=== PATIENT | female | born 1965 | race Caucasian/White ===

== ENCOUNTER 2025-02-11 15:35 | Outpatient (AMB) | payer BC, SELFPAY ==
--- OUTSIDE RECORDS SUMMARY | 2025-02-11 17:34 | XMS_ITS | Encounter Summary ---
Author Organization [employer] Address [address] [facility] 7t [place] [address] Care Team Providers Care Chair And Couch Maker Name Role Phone Dasia Rosen Unassigned Primary Care Provider U Reagan Moreno NP Primary Care Provider [phone] Apoorva Montero DO Primary Care Provider [phone] Ko Byrne Unavailable Encounter Details Date Type Department Care Team (Latest Contact Info) Description 09/18/2020 Abstract [facility] Dental, Provider, DDS Social History Tobacco Use Types Packs/Day Years Used Date Smoking Tobacco: Never Assessed Comments Unknown Sex and Gender Information Value Date Recorded Sex Assigned at Female 09/30/2022 10:27 AM EDT Legal Sex Female 5:35 PM EDT Gender Identity Female 09/30/2022 10:27 AM EDT Sexual Orientation Choose not to disclose 2022 10:27 AM EDT documented as of this encounter Plan of Treatment Upcoming Encounters Date Type Department Care Team (Late st Contact Info) Description 04/19/2025 11:00 AM EDT Office Visit [place] [facility] D[facility] [address] [place] [address] Zakia Avila documented as of this encounter Visit Diagnoses Not on filedocumented in this encounter Care Teams Chair And Couch Maker Relationship Specialty Start Date End Date Dasia Rosen Unassigned PCP - General Family Medicine 10/18/22 05/28/24 Reagan aHnna NP [address] [place] [address] PCP - General Internal Medicine 05/29/24 07/05/24 Apoorva Montero DO [address] [place] [address] PCP - General Family Medicine 07/06/24 Ko Byrne 01/17/25 documented as of this encounter
--- OUTSIDE RECORDS SUMMARY | 2025-02-11 17:34 | XMS_ITS | Encounter Summary ---
Author Organization [employer] Address [address] [facility] 7t [place] [address] Care Team Providers Care Finance Attorney Name Role Phone Dasia Rosen Unassigned Primary Care Provider U Reagan Moreno NP Primary Care Provider [phone] Apoorva Montero DO Primary Care Provider [phone] Ko Byrne Unavailable Encounter Details Date Type Department Care Team (Latest Contact Info) Description 03/09/2019 [facility] Dental, Provider, DDS Social [...] Description 04/19/2025 11:00 AM EDT Office Visit [place] [facility] D[facility]AL [address] [place] [address] Zakia Avila documented as of this encounter Visit Diagnoses Not on filedocumented in this encounter Care Teams Finance Attorney Relationship Specialty Start Date End Date Dasia Rosen Unassigned PCP - General Family Medicine 10/18/22 05/28/24 Reagan Hanna NP [address] [place] [address] PCP - General Internal Medicine 05/29/24 07/05/24 Apoorva Montero DO [address] [place] [address] PCP - General Family Medicine 07/06/24 Ko Byrne 01/17/25 documented as of this encounter
--- OUTSIDE RECORDS SUMMARY | 2025-02-11 17:34 | XMS_ITS | Encounter Summary ---
Author Organization [employer] Address [address] [facility] 7t [place] [address] Care Team Providers Care E D Tech Name Role Phone Dasia Rosen Unassigned Primary Care Provider U Reagan Moreno NP Primary Care Provider [phone] Apoorva Montero DO Primary Care Provider [phone] Ko Byrne Unavailable Encounter Details Date Type Department Care Team (Latest Contact Info) Description 05/26/2021 Abstract [facility] Dental, Provider, DDS Social [...] Description 04/19/2025 11:00 AM EDT Office Visit [place] [facility] D[facility] [address] [place] [address] Zakia Avila documented as of this encounter Visit Diagnoses Not on filedocumented in this encounter Care Teams E D Tech Relationship Specialty Start Date End Date Dasia Rosen Unassigned PCP - General Family Medicine 10/18/22 05/28/24 Reagan Hanna NP [address] [place] [address] PCP - General Internal Medicine 05/29/24 07/05/24 Apoorva Montero DO [address] [place] [address] PCP - General Family Medicine 07/06/24 Ko Byrne 01/17/25 documented as of this encounter
--- OUTSIDE RECORDS SUMMARY | 2025-02-11 17:34 | XMS_ITS | Encounter Summary ---
Author Organization [employer] Address 75 [facility] 7t [place] [address] Care Team Providers Care Clinical Nurse Educator Name Role Phone Dasia Rosen Unassigned Primary Care Provider U Reagan Moreno NP Primary Care Provider [phone] Apoorva Montero DO Primary Care Provider [phone] Ko Byrne Unavailable Encounter Details Date Type Department Care Team (Latest Contact Info) Description 12/29/2021 Abstract [facility] Dental, Provider, DDS Social [...] Description 04/19/2025 11:00 AM EDT Office Visit [place] [facility] D[facility]AL [address] [place] [address] Zakia Avila documented as of this encounter Visit Diagnoses Not on filedocumented in this encounter Care Teams Clinical Nurse Educator Relationship Specialty Start Date End Date Dasia Rosen Unassigned PCP - General Family Medicine 10/18/22 05/28/24 Reagan Hanna NP [address] [place] [address] PCP - General Internal Medicine 05/29/24 07/05/24 Apoorva Montero DO [address] [place] [address] PCP - General Family Medicine 07/06/24 Ko Byrne 01/17/25 documented as of this encounter
--- OUTSIDE RECORDS SUMMARY | 2025-02-11 17:35 | XMS_ITS | Clinical Summary ---
Author Organization [employer] Address 75 [facility] 7t [place] [address] Care Team Providers Care Pulp Press Tender Name Role Phone Apoorva Montero DO Primary Care Provider [phone] Ko Byrne Unavailable Allergies Active Allergy Reactions Criticality Noted Date Comments Warwick Oil 11/29/2022 Bee Pollen 11/29/2022 Pollen Extract 11/29/2022 Witch Jerome 11/29/2022 Other reaction(s): Perfumes and flavors patch test series, Witch jerome Medications EPINEPHrine (Epipen) 0.3 MG/0.3ML injection syringe epinephrine 0.3 mg/0.3 mL injection, auto-injector INJECT INTRAMUSCULARLY DIRECTED Active Cholecalciferol (VITAMIN D HIGH POTENCY PO) Vitamin D Active levothyroxine (Synthroid, Levoxyl) 112 MCG tabletIndicatio ns:Hypothyroidi sm, unspecified type Take 2 tabs by mouth on Tuesday and 1 tab by mouth daily the rest of the week 103 tablet 3 09/10/19 25 Active Active Problems Problem Noted Date Diagnosed Date Hypothyroidism 07/23/2024 Environmental allergies 07/23/2024 Allergic reaction to food 07/23/2024 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 Resolved Problems Problem Noted Date Diagnosed Date Resolved Date Vitreous detachment of right eye 07/23/2024 07/23/2024 Encounters Date Type Department Care Team Description 01/31/2025 Patient Outreach [facility] (C3) Department [address] [phone] Ko Byrne c3 care management 01/24/2025 Patient Outreach [facility] (C3) Department [address] [phone] Ko Byrne c3 care management 01/17/2025 Patient Outreach [facility] (C3) Department [address] [place] [phone] Ko Byrne c3 care management from Last 3 Months Immunizations Immunization Administration Dates Next Due Tdap 03/06/2024 Family History Medical History Relation Name Comments Hypertension Father Heart disease Mother Relation Name Status Comments Father Mother Social History Tobacco Use Types Packs/Day Years Used Date Smoking Tobacco: Former Cigarettes Passive Smoke Exposure: Past Smokeless Tobacco: Never Tobacco Cessation:Counseling Given: Not Answered Comments:Smoked in high school Alcohol Use Standard Drinks/Week Comments Not Currently 0 (1 standard drink = 0.6 oz pur e alcohol) Alcohol Answer Date Recorded How often do you have a drink containing alcohol ? 1 07/23/2024 How many drinks containing a lcohol do you have on a typical day when you are drinking? 0 07/23/2024 How often do you have six or more drinks on one occasion? 0 07/23/2024 Housing Stability Answer Date Recorded What is your housing situation today? I have adambeatrice welch 07/23/[address] you li ve. Do you have problems with any of the following? None of the above 07/23/2024 Food Insecurity Answer Date Recorded Within the past 12 months, y ou worried that your food would run out before you got money to buy more: Never True 07/23/2024 Within the past 12 months,th e food you bought just didn't last and you didn't have enough money to get more: Never True 08/2024 Transportation Answer Date Recorded In the past 12 months, has l ack of transportation kept you from medical appts, meetings, work or from getting things needed for daily living? No 07/23/2024 Intimate Partner Violence Answer Date R ecorded Within the last year, have y ou been afraid of your partner or ex-partner? 2 07/23/2024 Within the last year, have y ou been humiliated or emotionally abused in other ways by your partner or ex-partner? 2 Within the last year, have y ou been kicked, hit, slapped, or otherwise physically hurt by your partner or ex-partner? 2 07/23/2024 Within the last year, have y ou been raped or forced to have any kind of sexual activity by your partner or ex-partner? 2 07/23/2024 Utilities Answer Date Recorded In the past 12 months, has t he electric, gas, oil or water company threatened to shut off services in your home? No 07/23/2024 Depression Answer Date Recorded Patient Health Questionnaire-2 Score 0 07/23/2024 Internet Access Answer Date Recorded Internet Access Q1 Yes 07/23/2024 Internet Access Q2 Not on file 07/23/2024 Comments No Sex and Gender Information Value Date Recorded Sex Assigned at Female 09/30/2022 10:27 AM EDT Legal Sex Female 5:35 PM EDT Gender Identity Female 09/30/2022 10:27 AM EDT Sexual Orientation Choose not to disclose 2022 10:27 AM EDT Last Filed Vital Signs Vital Sign Reading Time Taken Comments Blood Pressure 135/76 07/23/2024 11:47 AM EST Pulse 73 07/23/2024 11:47 AM EST Temperature 36.7 C (98 F) 07/23/2024 11:47 AM EST Respiratory Rate 16 07/23/2024 11:47 AM EST Oxygen Saturation - - Inhaled Oxygen Concentration - - Weight 66.7 kg (147 lb) 07/23/2024 11:47 AM EST Height 161.9 cm (5' 3.75 ) 07/23/2024 11:[address] Body Mass Index 25.43 07/23/2024 11:47 AM EST Plan of Treatment Upcoming Encounters Date Type Department Care Team (Late st Contact Info) Description 04/19/2025 11:00 AM EDT Office Visit [place] [facility] DENTAL [address] [place] [phone] Zakia Avila Health Maintenance Due Date Last Done Comments CT Colonography 1966 FIT DNA/Cologuard 1966 FIT 1966 FOBT 1966 HIV Screening 1966 Sigmoidoscopy 1966 Hepatitis C Screening 1984 Hepatitis B Vaccines (1 of 3 - 19+ 3-dose series) 1985 HPV/Cotest 1996 Mammogram 2006 Pneumococcal Vaccine: 50+ Years (1 of 1 - PCV) 2016 Zoster Vaccines (1 of 2) 2016 Cervical Cancer Screening 10/31/2021 Pap Smear 10/31/2021 10/31/2018 Influenza Vaccine (#1) 2025 Dental Oral Exam 04/19/2025 10/17/2024, 06/2023, 10/08/2022, Additional history exists Dental Prophylaxis 04/19/2025 10/17/2024, 1 06/20/2023, 10/13/2023, Additional history exists Dental X-Ray: Bitewings 04/21/2025 04/20/20 24, 10/08/2022, 12/29/2021, Additional history exists Alcohol/Substance Use Screening 07/23/2025 07/23/2024 COVID-19 Vaccine ( season) 2025 09/03/2021, 01/05/2021, 12/15/2020 Postponed from 02/19/2024 (Patient Refused) Depression Screening 07/23/2025 07/23/2024, 07/23/19 Disability Screening 07/23/2025 07/23/2024 SDOH Screening 07/23/2025 07/23/2024 Dental X-Ray: Full Mouth 10/09/2025 023, 07/29/2015, 04/08/2008 Tobacco Screening 10/17/2025 10/17/2024 Colonoscopy 06/09/2028 06/09/2018 Colorectal Cancer Screening 06/09/2028 DTaP/Tdap/Td Vaccines (2 - Td or Tdap) 03/06/2034 03/06/2024 RSV Patients and Patients Aged 60 years or older (1 - 1-dose 75+ series) 2041 HIB Vaccines Aged Out No longer eligi ble based on patient's age to complete this topic HPV Vaccines Aged Out No longer eligi ble based on patient's age to complete this topic Hepatitis A Vaccines Aged Out No long er eligible based on patient's age to complete this topic IPV Vaccines Aged Out No longer eligi ble based on patient's age to complete this topic Meningococcal B Vaccine Aged Out No l onger eligible based on patient's age to complete this topic Meningococcal Vaccine Aged Out No brandie ishmael eligible based on patient's age to complete this topic RSV under 20 months Aged Out No longe r eligible based on patient's age to complete this topic Rotavirus Vaccines Aged Out No longer eligible based on patient's age to complete this topic Procedures Procedure Name Priority Date/Time Associated Diagnosis Comments Full PROPHYLAXIS - ADULT Routine 025 9:30 AM EDT PERIODIC ORAL EVALUATION - ESTABLISHED PATIENT Routine 10/17/2024 9:30 AM EDT BITEWINGS - 4 RADIOGRAPHIC IMAGES Routine 04/20/2024 9:30 AM EDT INTRAORAL - COMPLETE SERIES OF RADIOGRAPHIC IMAGES Routine 10/08/2022 8:30 AM EDT Encounter for dental examination HM PAP/HPV Routine 10/31/2018 10:46 AM EDT HM COLONOSCOPY Routine 06/09/2018 10:42 AM EST from Last 3 Months or Most Recently Relevant to Health Maintenance Results * PAP/HPV (10/31/2018 10:46 AM EDT) [facility] Final Resul t * Colonoscopy (06/09/2018 10:42 AM EST) [facility] Final Resul t from Last 3 Months or Most Recently Relevant to Health Maintenance Insurance [facility] C[facility] STAND ADULT Care Teams Pulp Press Tender Relationship Specialty Start Date End Date Apoorva Montero [facility] [address] [facility] [address] PCP - General Family Medicine 07/06/24 Ko Byrne 01/17/25
--- OUTSIDE RECORDS SUMMARY | 2025-02-11 17:35 | XMS_ITS | Encounter Summary ---
Author Organization [employer] Address [address] [facility] [address] 7t [place] [address] Care Team Providers Care Regulatory Affairs Spec Name Role Phone Apoorva Montero DO Primary Care Provider [phone] Ko Byrne Unavailable Encounter Details Date Type Department Care Team (Late st Contact Info) Description 08/22/2024 Orders Only [facility] [address] [place] [address] Apoorva Montero DO [address] [place] [address] Social History Tobacco Use Types Packs/Day Years Used Date Smoking Tobacco: Former Cigarettes Passive Smoke Exposure: Past Smokeless Tobacco: Never Comments:Smoked in high scho ol Alcohol Use Standard Drinks/Week Comments Not Currently [...] is your housing situation today? I have adam welch 07/23/[address] you [...] Description 04/19/2025 11:00 AM EDT Office Visit [facility] DENTAL [address] [place] [address] Zakia Avila documented as of this encounter Procedures Procedure Name Priority Date/Time Associated Diagnosis Comments MRI BRAIN WO CONTRAST Routine 08/01/2023 10:50 AM EST LIPID PANEL, STANDARD Routine 07/28/2023 10:47 AM EST TRANSTHORACIC ECHO (TTE) COMPLETE Routine 02/21/2019 10:45 AM EDT PAP/HPV Routine 10/31/2018 10:46 AM EDT HM COLONOSCOPY Routine 06/09/2018 10:42 AM EST MM DIGITAL MAMMO BILATERAL Routine 10/04/2017 10:49 AM EDT documented in this encounter Results * MRI BRAIN WO CONTRAST (08/01/2023 10:50 AM EST) Anatomical Region Laterality Modality Magnetic Resonan ce Apoorva Winston DO IMG MRI PROCEDURES Final Resul t * Lipid Panel, Standard (07/28/2023 10:47 AM EST) Blood Venous blood specimen / Unknown us Guerin Winston DO LAB BLOOD ORDERABLES Final Res ult * Transthoracic echo (TTE) complete (02/21/2019 10:45 AM EDT) us Guerin Winston DO CV ECHO PROCEDURES Final Resul t * HM PAP/HPV (10/31/2018 10:46 AM EDT) Apoorva Winston DO HEALTH MAINTENANCE Final Resul t * Hm Colonoscopy (06/09/2018 10:42 AM EST) Apoorva Winston DO HEALTH MAINTENANCE Final Resul t * MM DIGITAL MAMMO BILATERAL (10/04/2017 10:49 AM EDT) Anatomical Region Laterality Modality Mammography us Apoorva Montero DO IMG BI PROCEDURES Final Result documented in this encounter Visit Diagnoses Not on filedocumented in this encounter Care Teams Regulatory Affairs Spec Relationship Specialty Start Date End Date Apoorva Montero DO [address] [place] [id number] PCP - General Family Medicine 07/06/24 Ko Byrne 01/17/25 documented as of this encounter
--- OUTSIDE RECORDS SUMMARY | 2025-02-11 17:35 | XMS_ITS | Encounter Summary ---
Author Organization [employer] Address [address] [facility] 7t [place] [address] Care Team Providers Care Polymer Materials Consultant Name Role Phone Dasia Rosen Unassigned Primary Care Provider U Reagan Moreno NP Primary Care Provider [phone] Apoorva Montero DO Primary Care Provider [phone] Ko Byrne Unavailable Encounter Details Date Type Department Care Team (Latest Contact Info) Description 08/08/2018 Abstract [facility] CONVERSION[facility] Dental, Provider, DDS Social [...] Description 04/19/2025 11:00 AM EDT Office Visit [place] [facility] DENTAL [address] [place] [address] Zakia Avila documented as of this encounter Visit Diagnoses Not on filedocumented in this encounter Care Teams Polymer Materials Consultant Relationship Specialty Start Date End Date Dasia Rosen Unassigned PCP - General Family Medicine 10/18/22 05/28/24 Reagan Hanna NP [address] [place] [address] PCP - General Internal Medicine 05/29/24 07/05/24 Apoorva Montero DO [address] [place] [address] PCP - General Family Medicine 07/06/24 Ko Byrne 01/17/25 documented as of this encounter
--- OUTSIDE RECORDS SUMMARY | 2025-02-11 17:35 | XMS_ITS ---
Author Organization [employer] Address [address] [place] [address] 7t [place] [address] Care Team Providers Care Dip Lube Operator Name Role Phone Apoorva Montero DO Primary Care Provider Ko Byrne Unavailable CHW Complex Status:Outreach In Progress (Enrolling) Start date:01/17/2025 Enrollment reason:Risk Strat Overview [facility]. Evs C3 eligible Case Team Name Relationship Phone Ko Byrne(Responsible Staff) [phone] Continued Care and Services Coordination
--- OUTSIDE RECORDS SUMMARY | 2025-02-11 17:35 | XMS_ITS | Encounter Summary ---
Author Organization [employer] Address [address] [facility] 7t [place] [address] Care Team Providers Care Cane Piler Name Role Phone Dasia Rosen Unassigned Primary Care Provider U Reagan Moreno NP Primary Care Provider [phone] Apoorva Montero DO Primary Care Provider [phone] Ko Byrne Unavailable Encounter Details Date Type Department Care Team (Latest Contact Info) Description 01/31/2020 Abstract [facility] CON[facility] Dental, Provider, DDS Social [...] Description 04/19/2025 11:00 AM EDT Office Visit [place] [facility] DENTAL [address] [place] [address] Zakia Avila documented as of this encounter Visit Diagnoses Not on filedocumented in this encounter Care Teams Cane Piler Relationship Specialty Start Date End Date Dasia Rosen Unassigned PCP - General Family Medicine 10/18/22 05/28/24 Reagan Hanna NP [address] [place] [address] PCP - General Internal Medicine 05/29/24 07/05/24 Apoorva Montero DO [address] [place] [address] PCP - General Family Medicine 07/06/24 Ko Byrne 01/17/25 documented as of this encounter
== END 2025-02-12 13:40 | disposition home or self-care (01) ==
PROVIDERS: PCP Internal Medicine; Visit Provider Registered Nurse Emergency
DX: J30.89 Other allergic rhinitis (principal)
CPT/HCPCS: 95117; 95165

== ENCOUNTER 2025-03-27 16:14 | Outpatient (AMB) | payer MEDICAID, SELFPAY | END 2025-03-27 16:20 | disposition home or self-care (01) | LOC: HO.HMGAL 16:14 | PROVIDERS: PCP Family Medicine; Visit Provider Registered Nurse Emergency | DX: J30.89 Other allergic rhinitis (principal) | CPT/HCPCS: 95117; 95165 ==

== ENCOUNTER 2025-05-06 11:45 | Outpatient (AMB) | payer MEDICAID, SELFPAY | END 2025-05-06 11:45 | disposition home or self-care (01) | LOC: HO.HMGAL 11:45 | PROVIDERS: PCP Internal Medicine; Visit Provider Registered Nurse Emergency | DX: J30.89 Other allergic rhinitis (principal) | CPT/HCPCS: 95117; 95165 ==